=== PATIENT | male | born 1985 | race African-American/Black ===

== ENCOUNTER 2017-04-29 10:06 | Emergency (ER) | payer OTHER ==
[~2017-04-29] VITALS: Ht 190.5 cm; Wt 118.0 kg
[2017-04-29 10:07] VITALS: BP 142/94; PULSE 82; RESP 16; TEMP 99; O2SAT 99
[2017-04-29] MEDS ORDERED: IBUPROFEN 800 MG TAB PO ONE (10:45)
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
[2017-04-29] MEDS ORDERED: IBUP1TAB7 PO (12:16)
[2017-04-29] MEDS ORDERED: ROBA500T PO (12:16)
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
== END 2017-04-29 12:49 | disposition home or self-care (01) ==
LOC: NEPD 10:06
DX: S20.219A Contusion of unspecified front wall of thorax, initial encounter (principal); S89.92XA Unspecified injury of left lower leg, initial encounter; V47.5XXA Car driver injured in collision with fixed or stationary object in traffic accident, initial encounter
CPT/HCPCS: 71045; 73590; 99284